=== PATIENT | female | born 1955 | race Caucasian/White ===

== ENCOUNTER 2025-05-27 08:13 | Outpatient (CLI) | payer MEDICARE ==
[2025-05-27 09:56] LABS: Estimated GFR - POC 61.0
[2025-05-27] MEDS ORDERED: Iopamidol 370 76% 100 ML VIAL ONE (13:43)
== END 2025-05-27 08:14 | disposition home or self-care (01) ==
LOC: CSHCT 08:13
PROVIDERS: ATTEND Family Medicine
DX: I72.6 Aneurysm of vertebral artery (principal); I77.71 Dissection of carotid artery
CPT/HCPCS: 36415; 70496; 70498; 82565

== ENCOUNTER 2025-06-25 11:33 | Outpatient (CLI) | payer MEDICARE | END 2025-06-25 11:34 | disposition home or self-care (01) | LOC: CSHMAMMO 11:33 | PROVIDERS: ATTEND Family Medicine | DX: Z12.31 Encounter for screening mammogram for malignant neoplasm of breast (principal); Z91.89 Other specified personal risk factors, not elsewhere classified | CPT/HCPCS: 77063; 77067 ==